=== PATIENT | male | born 1970 | race African-American/Black ===

== ENCOUNTER 2016-08-26 18:37 | Emergency (ER) | payer OTHER ==
[~2016-08-26] VITALS: Ht 185.4 cm; Wt 78.9 kg
[2016-08-26 20:29] LABS: Basophils # (auto) 0.1 uL; Basophils % (auto) 0.6 % (0.0-2.0); Eosinophils # (auto) 0.1 uL; Eosinophils % (auto) 0.5 % (0.0-7.0); Hematocrit 43.5 % (41.0-53.0); Hemoglobin 14.3 g/dL (13.5-17.5); Lymphocytes # (auto) 2.9 uL; Lymphocytes % (auto) 29.7 % (10.0-50.0); Mean Corpuscular Hemoglobin 30.1 pg (28.0-32.0); Mean Corpuscular Hgb Conc. 32.8 g/dL (32.0-36.0); Mean Corpuscular Volume 91.8 fL (80.0-100.0); Mean Platelet Volume 7.8 fL (7.4-10.4); Monocytes # (auto) 0.6 uL; Monocytes % (auto) 5.9 % (0.0-12.0); Neutrophils # (auto) 6.2 uL; Neutrophils % (auto) 63.3 % (37.0-80.0); Platelet Count (auto) 315 10^3/uL (140-450); Red Cell Distribution Width 14.2 % (11.6-16.0); White Blood Cell 9.9 10^3/uL (4.4-10.8)
[2016-08-26 20:47] LABS: INR 1.01 (0.9-1.15); Partial Thromboplastin Time 29.6 sec (22.64-33.71); Prothrombin Time 10.9 sec (9.37-12.3)
[2016-08-26 20:58] LABS: Albumin 4.6 g/dL (3.4-5.0); Anion Gap 10 (5-15); Aspartate Aminotransferase 23 U/L (15-37); BUN/Creatinine Ratio 9.3; Blood Urea Nitrogen 10 mg/dL (7-18); Calcium 9.1 mg/dL (8.5-10.1); Carbon Dioxide 27 mmol/L (21-32); Chloride 105 mmol/L (98-107); GFR African American 95 mL/min; GFR Non-African American 79 mL/min; Glucose 120 mg/dL (74-106); Potassium 3.1 mmol/L (3.5-5.1); Sodium 142 mmol/L (136-145)
[2016-08-26 21:02] LABS: Alkaline Phosphatase 87 U/L (45-117); Bilirubin, Total 0.7 mg/dL (0.2-1.0); Total Protein 8.3 g/dL (6.4-8.2)
[2016-08-26 21:04] LABS: B-Type Natriuretic Peptide 29.16 pg/mL (0-100)
[2016-08-26 21:35] LABS: Temperature: 23.1 C (20.0-25.0)
[2016-08-27] MEDS ORDERED: KETOROLAC TROMETH 60MG/2ML VIAL IM ONE (01:45)
[2016-08-27] MEDS ORDERED: HYDROcodone-ACET 7.5/325MG TAB PO ONE (01:45)
[2016-08-27 03:12] VITALS: BP 141/93
== END 2016-08-27 03:13 | disposition home or self-care (01) ==
LOC: ER 18:45
DX: G44.309 Post-traumatic headache, unspecified, not intractable (principal); F17.210 Nicotine dependence, cigarettes, uncomplicated; F12.10 Cannabis abuse, uncomplicated; R53.1 Weakness
CPT/HCPCS: 36415; 70450; 71020; 80053; 83880; 84484; 85025; 85610; 85730; 93005; 96372; 99285; J1885